=== PATIENT | male | born 1970 | race African-American/Black ===

== ENCOUNTER 2017-09-24 22:09 | Emergency (ER) | payer OTHER ==
[~2017-09-24] VITALS: Ht 185.4 cm; Wt 105.7 kg
[~2017-09-24 22:09] MED LIST: ACET500C5 PO; BACTDS PO; CARV12.579 PO; COU3 PO; DOXY-220 PO; FURO-109 PO; POTA20TA8 PO; PRED20TA PO; SPIR25TA PO
[2017-09-24 22:23] VITALS: Ht 185.4 cm; Wt 105.7 kg
[2017-09-25] MEDS ORDERED: BACI28.34 TOP (01:30)
[2017-09-25] MEDS ORDERED: LIDOCAINE 1% (MDV) 20 ML INJ SC ONE (01:30)
--- NOTE | 2017-09-25 02:22 | ERD ---
ER Documentation Chief Complaint Chief Complaint left leg laceration. hit leg against bed frame HPI 47-year-old male complaining of laceration to left lower leg. Patient hit his leg against the bed frame and caused a laceration. Up-to-date on tetanus. Patient is on blood thinners and so there is excessive bleeding. Patient has no pain with ambulation. Denies numbness or tingling to the extremity. Echo problems: CHF, A. fib, and asthma. Surgical history: Denies. Social history: Denies. ROS All systems reviewed and are negative except as per history of present illness. Medications Home Meds Active Scripts Bacitracin* (Bacitracin Zinc Oint*) 28.35 Gm Oint, 1 APPLIC TOP BID, #1 TUB APPLI TO Prov:DEBORA MORALES PA-C 09/25/17 Acetaminophen* (Tylophen*) 500 Mg Capsule, 1 CAP PO Q6H Y for PAIN AND OR ELEVATED TEMP, #20 CAP Prov:MARTINA PANDEY NP 07/15/16 Warfarin Sod (Coumadin) 3 Mg Tab, 3 MG PO DAILY, #30 TAB Prov:ROME FLOYD MD 09/25/15 Reported Medications Doxycycline Monohydrate* (Doxycycline Monohydrate*) 100 Mg Tablet, 100 MG PO DAILY, TAB PER PT STARTED 09-20-15 09/23/15 Potassium Chloride* (Klor-Con*) 10 Meq Tabsr, 10 MEQ PO DAILY, TAB.SA 09/23/15 Spironolactone* (Aldactone*) 25 Mg Tablet, 25 MG PO DAILY, TAB 09/23/15 Prednisone* (Prednisone*) 20 Mg Tab, 20 MG PO DAILY, TAB PER PT STARTED 09-20-15 09/23/15 Carvedilol* (Carvedilol*) 12.5 Mg Tablet, 12.5 MG PO BID, TAB 09/23/15 Furosemide* (Lasix*) 40 Mg Tablet, 40 MG PO DAILY, TAB 09/23/15 Sulfamethoxazole-Trimethoprim* (Bactrim* DS) 800-160 Mg Tab, 1 TAB PO BID for 3 Days, TAB PER PT STARTED 09-20-15 09/23/15 Allergies Allergies: Coded Allergies: No Known Allergy (Unverified , 09/23/15) PMhx/Soc History of Surgery: No Anesthesia Reaction: No Hx Neurological Disorder: No Hx Respiratory Disorders: Yes (asthma) Hx Cardiac Disorders: Yes (AFIB,CHF) Hx Psychiatric Problems: No 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 There are no rales, wheezes or rhonchi. HEART: Regular rate and rhythm. No murmurs, clicks, rubs or gallops. No S3 or S4. EXTREMITIES: Equal pulses bilaterally. There is no peripheral clubbing, cyanosis or edema. No focal swelling or erythema. Full range of motion. Grossly neurovascularly intact. NEUROLOGIC: Alert and oriented. Cranial nerves II through XII intact. Motor strength in all 4 extremities with 5 out of 5 strength. Sensation grossly intact. Normal speech and gait. Babinski negative. DTR 2+ throughout. SKIN: V-shaped laceration to the left lower leg. No tendon or ligament involvement. Mild bleeding. No foreign body seen. Length of laceration approximately 1.5 cm on both sides of the flap. Results 24 hrs Current Medications Medications (Trade) Dose Ordered Sig/Lady Route PRN Reason Start Time Stop Time Status Last Admin Dose Admin Lidocaine (Xylocaine 1% (Mdv) 20 ml) 20 ml ONCE ONCE SC 09/25/17 01:30 09/25/17 01:31 DC Procedures/MDM Site cleaned with copious amounts of normal saline. 5 cc of lidocaine with epinephrine injected into the wound site. 6 4-0 nylon simple interrupted sutures applied and edges well approximated. Site recleaned and bandage applied. Patient tolerated procedure well. MDM: 47-year-old male complaining of laceration to the left lower leg. I have low suspicion for retained foreign bodies. A low suspicion for tendon or ligament injury. I have low suspicion for neurodeficit. Patient's pain was well controlled in wound was repaired in the emergency room. Patient will return in 7 days for suture removal. He is told if symptoms change or worsen or signs of infection develop to return the emergency room. Patient is told to clean wound site with soap and water and after 3 days allow to air dry. All questions answered at discharge. Departure Diagnosis: Primary Impression: Laceration Condition: Stable Patient Instructions: Laceration, All Referrals: ANTONIO EVANS MD (PCP) Additional Instructions: FOLLOW UP WITH YOUR PRIMARY CARE PHYSICIAN TOMORROW.Return to this facility if you are not improving as expected. DEBORA MORALES PA-C Sep 25, 2017 02:22
== END 2017-09-25 01:48 | disposition home or self-care (01) ==
LOC: FTE 22:09
DX: S81.812A Laceration without foreign body, left lower leg, initial encounter (principal); I50.9 Heart failure, unspecified; J45.909 Unspecified asthma, uncomplicated; W22.09XA Striking against other stationary object, initial encounter; Y92.9 Unspecified place or not applicable
CPT/HCPCS: 12001; Z7502

== ENCOUNTER 2017-09-27 09:39 | Emergency (ER) | payer OTHER ==
[~2017-09-27] VITALS: Ht 185.4 cm; Wt 105.8 kg
[~2017-09-27 09:39] MED LIST changes: +BACI28.34 TOP
[2017-09-27 09:44] VITALS: Ht 185.4 cm; Wt 105.8 kg
--- NOTE | 2017-09-27 10:28 | ERD ---
ER Documentation Chief Complaint Chief Complaint left lower leg wound check HPI 47-year-old male presenting to emergency room for wound check of a laceration of the lower leg. Laceration repair was done 3 days ago and is healing without difficulty. Patient denies severe pain. Denies purulence. Denies discharge. Has been keeping the site covered. Up-to-date vaccinations. ROS All systems reviewed and are negative except as per history of present illness. Medications Home Meds Active Scripts Bacitracin* (Bacitracin Zinc Oint*) 28.35 Gm Oint, 1 APPLIC TOP BID, #1 TUB APPLI TO Prov:DEBORA MORALES PA-C 09/25/17 Acetaminophen* (Tylophen*) 500 Mg Capsule, 1 CAP PO Q6H Y for PAIN AND OR ELEVATED TEMP, #20 CAP Prov:MARTINA PANDEY NP 07/15/16 Warfarin Sod (Coumadin) 3 Mg Tab, 3 MG PO DAILY, #30 TAB Prov:ROME FLOYD MD 09/25/15 Reported Medications Doxycycline Monohydrate* (Doxycycline Monohydrate*) 100 Mg Tablet, 100 MG PO DAILY, TAB PER PT STARTED 09-20-15 09/23/15 Potassium Chloride* (Klor-Con*) 10 Meq Tabsr, 10 MEQ PO DAILY, TAB.SA 09/23/15 Spironolactone* (Aldactone*) 25 Mg Tablet, 25 MG PO DAILY, TAB 09/23/15 Prednisone* (Prednisone*) 20 Mg Tab, 20 MG PO DAILY, TAB PER PT STARTED 09-20-15 09/23/15 Carvedilol* (Carvedilol*) 12.5 Mg Tablet, 12.5 MG PO BID, TAB 09/23/15 Furosemide* (Lasix*) 40 Mg Tablet, 40 MG PO DAILY, TAB 09/23/15 Sulfamethoxazole-Trimethoprim* (Bactrim* DS) 800-160 Mg Tab, 1 TAB PO BID for 3 Days, TAB PER PT STARTED 09-20-15 09/23/15 Allergies Allergies: Coded Allergies: No Known Allergy (Unverified , 09/23/15) PMhx/Soc History of Surgery: No Anesthesia Reaction: No Hx Neurological Disorder: No Hx Respiratory Disorders: Yes (asthma) Hx Cardiac Disorders: Yes (AFIB,CHF) Hx Psychiatric Problems: No 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 There are no rales, wheezes or rhonchi. HEART: Regular rate and rhythm. No murmurs, clicks, rubs or gallops. No S3 or S4. EXTREMITIES: Equal pulses bilaterally. There is no peripheral clubbing, cyanosis or edema. No focal swelling or erythema. Full range of motion. Grossly neurovascularly intact. NEUROLOGIC: Alert and oriented. Cranial nerves II through XII intact. Motor strength in all 4 extremities with 5 out of 5 strength. Sensation grossly intact. Normal speech and gait. SKIN: healing V shaped laceration to left lower leg. Dehiscence. No purulence Procedures/MDM MDM: 47 yr old male presenting for wound check. I will suspicion for wound infection. I have low suspicion for neurodeficit. I will suspicion for retained foreign bodies. Patient is told to keep wound uncovered and ear dry. Patient is told if signs of infection develop to return immediately. Patient will return in 5 days for sutures to be removed. All questions answered discharge. Departure Diagnosis: Primary Impression: Encounter for wound re-check Condition: Stable Patient Instructions: Wound Check, Lac F/U (No Infection) Additional Instructions: FOLLOW UP WITH YOUR PRIMARY CARE PHYSICIAN TOMORROW.Return to this facility if you are not improving as expected. DEBORA MORALES PA-C Sep 27, 2017 10:28
== END 2017-09-27 10:29 | disposition home or self-care (01) ==
LOC: FTE 09:39
DX: Z48.01 Encounter for change or removal of surgical wound dressing (principal); I50.9 Heart failure, unspecified; J45.909 Unspecified asthma, uncomplicated; Z79.01 Long term (current) use of anticoagulants
CPT/HCPCS: 99281

== ENCOUNTER 2017-10-01 18:09 | Emergency (ER) | payer OTHER ==
[~2017-10-01] VITALS: Ht 182.9 cm; Wt 107.3 kg
[2017-10-01 18:33] VITALS: Ht 182.9 cm; Wt 107.3 kg
[2017-10-01] MEDS ORDERED: CEPH-443 PO (19:03)
--- NOTE | 2017-10-01 23:12 | ERD ---
ER Documentation Chief Complaint Chief Complaint suture removal left leg HPI 47-year-old male presenting for suture removal of the left lower leg. Patient denies any pain or purulence at the site. No fevers. Has been cleaning site with soap and water and does not appear to be bleeding. ROS All systems reviewed and are negative except as per history of present illness. Medications Home Meds Active Scripts Cephalexin* (Keflex*) 500 Mg Capsule, 500 MG PO QID for 5 Days, CAP Prov:DEBORA MORALES PA-C 10/01/17 Bacitracin* (Bacitracin Zinc Oint*) 28.35 Gm Oint, 1 APPLIC TOP BID, #1 TUB APPLI TO Prov:DEBORA MORALES PA-C 09/25/17 Acetaminophen* (Tylophen*) 500 Mg Capsule, 1 CAP PO Q6H Y for PAIN AND OR ELEVATED TEMP, #20 CAP Prov:MARTINA PANDEY NP 07/15/16 Warfarin Sod (Coumadin) 3 Mg Tab, 3 MG PO DAILY, #30 TAB Prov:ROME FLOYD MD 09/25/15 Reported Medications Doxycycline Monohydrate* (Doxycycline Monohydrate*) 100 Mg Tablet, 100 MG PO DAILY, TAB PER PT STARTED 09-20-15 09/23/15 Potassium Chloride* (Klor-Con*) 10 Meq Tabsr, 10 MEQ PO DAILY, TAB.SA 09/23/15 Spironolactone* (Aldactone*) 25 Mg Tablet, 25 MG PO DAILY, TAB 09/23/15 Prednisone* (Prednisone*) 20 Mg Tab, 20 MG PO DAILY, TAB PER PT STARTED 09-20-15 09/23/15 Carvedilol* (Carvedilol*) 12.5 Mg Tablet, 12.5 MG PO BID, TAB 09/23/15 Furosemide* (Lasix*) 40 Mg Tablet, 40 MG PO DAILY, TAB 09/23/15 Sulfamethoxazole-Trimethoprim* (Bactrim* DS) 800-160 Mg Tab, 1 TAB PO BID for 3 Days, TAB PER PT STARTED 09-20-15 09/23/15 Allergies Allergies: Coded Allergies: No Known Allergy (Unverified , 09/23/15) PMhx/Soc Medical and Surgical Hx: pt denies Medical Hx, pt denies Surgical Hx History of Surgery: No Anesthesia Reaction: No Hx Neurological Disorder: No Hx Respiratory Disorders: Yes (asthma) Hx Cardiac Disorders: Yes (AFIB,CHF) Hx Psychiatric Problems: No 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 There are no rales, wheezes or rhonchi. HEART: Regular rate and rhythm. No murmurs, clicks, rubs or gallops. No S3 or S4. EXTREMITIES: Equal pulses bilaterally. There is no peripheral clubbing, cyanosis or edema. No focal swelling or erythema. Full range of motion. Grossly neurovascularly intact. NEUROLOGIC: Alert and oriented. Cranial nerves II through XII intact. Motor strength in all 4 extremities with 5 out of 5 strength. Sensation grossly intact. Normal speech and gait. Babinski negative. DTR 2+ throughout. SKIN: V-shaped healing laceration with no dehiscence or purulence at the wound site. Mild erythema surrounding the wound site. No fluctuance. No warmth.. Procedures/MDM ER course: 5 simple interrupted sutures removed without complication. Bandaid applied MDM: 47-year-old male sent in for suture removals of the lower extremity. I will place patient on antibiotics as there is some erythema surrounding the wound site and I have concern for possible early infection. I have low suspicion for necrotizing fasciitis or deep abscess formation. I have low suspicion of ill healing wound site. Patient had sutures removed without complication. All questions answered discharge. Patient is discharged with strict ER precautions Departure Diagnosis: Primary Impression: Encounter for removal of sutures Condition: Stable Patient Instructions: Suture Removal, No Complication Referrals: ANTONIO EVANS MD (PCP) Additional Instructions: FOLLOW UP WITH YOUR PRIMARY CARE PHYSICIAN TOMORROW.Return to this facility if you are not improving as expected. DEBORA MORALES PA-C Oct 01, 2017 23:12
== END 2017-10-01 19:20 | disposition home or self-care (01) ==
LOC: FTE 18:09
DX: Z48.02 Encounter for removal of sutures (principal); J45.909 Unspecified asthma, uncomplicated; I50.9 Heart failure, unspecified; Z79.01 Long term (current) use of anticoagulants
CPT/HCPCS: 99283

== ENCOUNTER 2018-01-24 17:13 | Emergency (ER) | END 2018-01-24 19:43 | disposition home or self-care (01) ==

== ENCOUNTER 2019-01-31 12:10 | Emergency (ER) | payer OTHER ==
[~2019-01-31] VITALS: Ht 182.9 cm; Wt 90.0 kg
[~2019-01-31 12:10] MED LIST changes: -ACET500C5 PO; -BACI28.34 TOP; -BACTDS PO; -CARV12.579 PO; +CIPR500T4 PO; -COU3 PO; +DIGO125T PO; -DOXY-220 PO; -FURO-109 PO; +FURO40TA4 PO; +METR-122 PO; +POTA10CA PO; -POTA20TA8 PO; -PRED20TA PO; +WARF7.5T PO
[2019-01-31 12:12] VITALS: BP 130/78; PULSE 78; RESP 18; Ht 182.9 cm; Wt 90.0 kg
[2019-01-31] MEDS ORDERED: NAPR-985 PO (13:52)
--- NOTE | 2019-01-31 14:38 | ERD ---
ER Documentation Chief Complaint Chief Complaint right ankle/foot pain HPI 48-year-old male presenting pain to his right foot. Patient twisted his ankle yesterday when playing outside. He had pain with ambulation. He has not taken medications today. He denies any numbness or tingling. Denies other medical problems. NKDA. Surgical history denies. Social history denies ROS All systems reviewed and are negative except as per history of present illness. Medications Home Meds Active Scripts Naproxen* (Naprosyn*) 500 Mg Tablet, 500 MG PO BID PRN for PAIN AND/OR INFLAMMATION, #30 TAB Prov:DEBORA MORALSE PA-C 01/31/19 Metronidazole* (Metronidazole*) 500 Mg Tablet, 500 MG PO Q8 for 7 Days, #21 TAB Prov:DI PALOMO MD 07/08/18 Ciprofloxacin Hcl* (Ciprofloxacin Hcl*) 500 Mg Tablet, 500 MG PO BID for 7 Days, #14 TAB Prov:DI PALOMO MD 07/08/18 Reported Medications Digoxin* (Digitek*) 125 Mcg Tablet, 0.125 MG PO DAILY, TAB 07/05/18 Warfarin Sodium* (Coumadin*) 7.5 Mg Tablet, 7.5 MG PO DAILY, TAB 07/05/18 Spironolactone* (Aldactone*) 25 Mg Tablet, 25 MG PO DAILY, #30 TAB 07/05/18 Potassium Chloride (Klor-Con Sprinkle) 10 Meq Capsule.er, 10 MEQ PO DAILY, CAP 07/05/18 Furosemide* (Furosemide*) 40 Mg Tablet, 80 MG PO DAILY, TAB 07/05/18 Allergies Allergies: Coded Allergies: No Known Allergy (Unverified , 07/05/18) PMhx/Soc History of Surgery: Yes Anesthesia Reaction: No Hx Neurological Disorder: No Hx Respiratory Disorders: Yes (Asthma) Hx Cardiac Disorders: Yes (Afib, CHF) Hx Psychiatric Problems: No Hx Miscellaneous Medical Probl: No Hx Alcohol Use: Yes (3-4 glasses of wine per week) Hx Substance Use: No Hx Tobacco Use: No FmHx Family History: No diabetes, No coronary disease, No other Physical Exam Vitals Vital Signs Date Temp Pulse Resp B/P (MAP) Pulse Ox O2 O2 Flow FiO2 Time Delivery Rate 01/31/19 97.9 78 18 130/78 99 12:12 (95) Physical Exam GENERAL: The patient is well-appearing, well-nourished, in no acute distress CHEST: Clear to auscultation bilaterally. There are no rales, wheezes or rhonchi. HEART: Regular rate and rhythm. No murmurs, clicks, rubs or gallops. EXTREMITIES: Mild swelling noted to the right foot with mild tenderness palpation over the lateral aspect of the right foot. No pain to the ankle. Normal flexion extension. Compartments soft. Pulses intact. NEUROLOGIC: Alert and oriented. Cranial nerves II through XII intact. Motor strength in all 4 extremities with 5 out of 5 strength. Sensation grossly intact. Normal speech and gait. SKIN: There is no apparent rash or petechiae. The skin is warm and dry. Procedures/MDM DIAGNOSTIC IMAGING REPORT Patient: LAINE ARRINGTON : 1970 Age: 48 Sex: M MR #: [id number] DOS: 01/31/19 1253 Ordering MD: ARTIE MORALES PA-C Location: [facility] Room/Bed: PROCEDURE: XR Right Foot. CLINICAL INDICATION: Right foot pain. TECHNIQUE: 3 views. Frontal, lateral, and oblique. COMPARISON: 07/15/2016 FINDINGS: There is no fracture or dislocation. The soft tissues are normal. Articular surfaces are intact. There is no lytic or blastic lesion. There is no radiopaque foreign body. IMPRESSION: 1. Normal images of the right foot. MDM: 48-year-old male presenting with pain to his ankle. I have low suspicion for acute fracture dislocation. I recommend patient to wear splint however he declined splint in the ER. Patient likely has sprain is told to ice and e levate. Patient is told if symptoms change or worsen to return immediately to the ER. Patient is discharged stricter precautions and supportive medications. All questions answered at discharge Departure Diagnosis: Primary Impression: Foot sprain Condition: Stable Patient Instructions: Sprain Foot Referrals: [facility] YOU HAVE RECEIVED A MEDICAL SCREENING EXAM AND THE RESULTS INDICATE THAT YOU DO NOT HAVE A CONDITION THAT REQUIRES URGENT TREATMENT IN THE EMERGENCY DEPARTMENT. FURTHER EVALUATION AND TREATMENT OF YOUR CONDITION CAN WAIT UNTIL YOU ARE SEEN IN YOUR DOCTORS OFFICE WITHIN THE NEXT 1-2 DAYS. IT IS YOUR RESPONSIBILITY TO MAKE AN APPOINTMENT FOR FOLOW-UP CARE. IF YOU HAVE A PRIMARY DOCTOR --you should call your primary doctor and schedule an appointment IF YOU DO NOT HAVE A PRIMARY DOCTOR YOU CAN CALL OUR PHYSICIAN REFERRAL HOTLINE AT IF YOU CAN NOT AFFORD TO SEE A PHYSICIAN YOU CAN CHOSE FROM THE FOLLOWING [facility] [address] [facility] [address] [facility] [address] [facility] [address] [facility] [address] [facility] [facility]. [address] Additional Instructions: FOLLOW UP WITH YOUR PRIMARY CARE PHYSICIAN TOMORROW.Return to this facility if you are not improving as expected. DEBORA MORALES PA-C Jan 31, 2019 14:38
== END 2019-01-31 14:40 | disposition home or self-care (01) ==
LOC: FTE 12:10
DX: S93.601A Unspecified sprain of right foot, initial encounter (principal); I50.9 Heart failure, unspecified; J45.909 Unspecified asthma, uncomplicated; X50.1XXA Overexertion from prolonged static or awkward postures, initial encounter; Y92.89 Other specified places as the place of occurrence of the external cause; Z79.01 Long term (current) use of anticoagulants
CPT/HCPCS: 73630